=== PATIENT | male | born 1955 | race Caucasian/White ===

== ENCOUNTER 2019-04-15 11:01 | Emergency (ER) | payer OTHER, SELFPAY ==
[2019-04-15 11:01] VITALS: BP 173/137; PULSE 91; RESP 18; TEMP 36.6; O2SAT 100; BMI 24.3
--- NOTE | 2019-04-15 11:15 | CT_ITS ---
STUDY: CT ABDOMEN AND PELVIS WITHOUT CONTRAST REASON FOR EXAM: Male, 63 years old. Right flank pain. History of kidney stones. RADIATION DOSAGE (If Supplied By Facility): CTDIvol = ( 13.62 ) mGy, DLP = ( 685.32 ) mGycm TECHNIQUE: Transaxial images were obtained from the dome of the diaphragm to the symphysis pubis without oral contrast, and without intravenous contrast. Sagittal and coronal images were reconstructed. Individualized dose optimization techniques were used for this CT. COMPARISON: None. FINDINGS: Minimal degree of increased markings at the lung bases suggestive of linear atelectasis. Bronchiectasis in the posterior medial segment of the right lower lobe. There is a 6.8 mm noncalcified nodule in the lateral aspect of the right lower lobe. A similar appearing nodule measuring 5.4 mm is also seen along the lateral pleural aspect of the right lower lobe. The visualized portions of the heart are within normal limits. Normal liver. Normal gallbladder and extrahepatic biliary system. Normal spleen. Normal pancreas. Normal bilateral adrenal glands. Normal right kidney. There is a 5 mm calculus in the inferior pole calyx of the left kidney. There is a small hiatal hernia. Normal small intestine. Findings suggestive of a colitis involving the distal portion of the ascending colon as well as the transverse colon. There are multiple colonic diverticula consistent with diverticulosis. The appendix is visualized and appears normal. There is scattered atherosclerotic calcification of the abdominal aorta, without a demonstrated aneurysm. Normal inferior vena cava. Normal retroperitoneum. Normal urinary bladder. There is enlargement of the prostate gland. Prostatic calcification. Benign appearing bilateral inguinal lymph nodes. There are diffuse degenerative changes of the visualized lumbar spine. Levoscoliosis. CT/Abdomen/Pelvis without Cont IMPRESSION: Increased markings at the lung bases suggestive of scarring more prominent on the right side. Subcentimeters noncalcified nodules in the right lung base. Findings suggestive of colitis of the right hemicolon as described. Nonobstructive 5 mm calculus in the lower pole calyx of the left kidney. Prostatic hypertrophy and central calcification. Electronically Signed: Andrez Reyes, at 12:38 EDT , Service support ,
[2019-04-15 11:23] LABS: Absolute Lymphocyte Count 0.93 X10^3/uL (0.83-4.51); Basophil# 0.02 X10^3/uL; Basophil% 0.2 % (0-1); Eosinophil# 0.04 X10^3/uL; Eosinophils% 0.4 % (0-5); Hematocrit 45.9 % (40-54); Hemoglobin 16.4 g/dL (13.0-16.5); Lymphocyte # 0.93 X10^3/ul (4.0); Mean Corp Hgb Conc 35.7 g/dL (32-36); Mean Corpuscular Hgb 31.9 pg (27.0-32.0); Mean Corpuscular Volume 89.3 fL (80-94); Mean Platelet Vol. 9.9 fl (6.2-12.0); Monocyte# 0.29 X10^3/uL; Monocyte% 2.8 % (0-10); NRBC Flagged by Analyzer 0 % (0-5); Neutrophil # 8.97 X10^3/uL (2.7-7.7); Neutrophil % 86.9 % (47-70); Platelet Count 269 K/mm3 (150-450); RBC Distribution Width CV 12.2 % (11.6-14.6); RBC Distribution Width SD 40.2 fl (35.1-43.9); Red Blood Count 5.14 M/mm3 (4.6-6.2); White Blood Count 10.3 K/mm3 (4.4-11.0)
[2019-04-15] MEDS: 0.9% Normal Saline 1,000 ML 250 ML IV (11:25)
[2019-04-15] MEDS: Morphine 4 MG/ML Syringe IV (11:26)
[2019-04-15] MEDS: Ondansetron 4 MG/2 ML Vial IV (11:26)
[2019-04-15] MEDS: Ketorolac 30 MG/ML Syringe IV (11:27)
[2019-04-15 11:38] LABS: Anion Gap 8 (5-15); BUN 14 mg/dL (7-18); BUN/Creat Ratio 13.6 RATIO (10-20); Calcium,Total 9.3 mg/dL (8.5-10.1); Chloride 109 mmol/L (98-107); Creatinine, Serum 1.03 mg/dL (0.70-1.30); EST Glomerular Filtration Rate 78 mL/min (>60); Est Glom Filt Rate - Afr Amer 94 mL/min (>60); Estimated Creatinine Clearance 90.01 ml/min; Glucose 131 mg/dL (74-106); Potassium 3.7 mmol/L (3.5-5.1); Sodium Level 140 mmol/L (136-145)
[2019-04-15 13:00] LABS: Mucous, Urine 0 SEEN /hpf (<or=2+)
[2019-04-15 13:12] LABS: Color, Urine Yellow (Yellow); Glucose, Dipstick 50 mg/dl (Normal); Ketone-Dipstick 50 mg/dl (Negative); Leukocyte Esterase-Dipstick Negative /ul (Negative); Nitrite-Dipstick Negative (Negative); Occult Blood-Urine Negative /ul (Negative); Protein-Dipstick 15 mg/dl (Negative); Specific Gravity, Urine 1.015 (1.002-1.030); Urine Bilirubin Dipstick Negative (Negative); Urine Clarity Cloudy (Clear); Urine Urobilinogen Normal (Normal)
[2019-04-15 13:19] LABS: Amorphous Sediment 2+; Bacteria RARE /hpf (None Seen); Red Blood Cells-Urine 0-5 SEEN /hpf (0-5); Squamous Epithelial Cells - UA 0-5 SEEN /hpf (0-5); White Blood Cells 0-5 SEEN /hpf (0-5)
--- NOTE | 2019-04-15 13:35 | ED.DCSUM_ITS ---
- ER Visit Summary Date of Service: 04/15/19 Chief Complaint: Abdominal pain History of Present Illness: The patient is a 63 M who states that yesterday began to have some right lower quadrant abdominal pain. He states that it waxes and wane. It radiates to the right flank. He denies any blood in the urine. He states he does have a history of a kidney stone. No blood in stool. He is never had a colonoscopy. No history of colitis or inflammatory bowel disease. No fevers. Physical Examination: Afebrile vital signs stable Gen: Well-nourished well-developed patient appears in pain. Head: Normocephalic atraumatic Eyes: Perrl EOMI ENT: TMs clear no rhinorrhea moist mucous membranes Neck: Supple no lymphadenopathy no JVD nontender CVS: Regular rate rhythm no murmurs normal S1-S2 Respiratory: No distress clear to auscultation bilaterally chest nontender Abdomen: Soft nontender nondistended normal bowel sounds no masses Back: Nontender Extremity: Nontender no edema Skin: Normal color no rash Neuro: alert orientated ?3 CN II-XII intact normal strength sensation Psych: Normal affect normal mood Test Results: White count is normal. Urinalysis negative. Creatinine normal. CT and pelvis demonstrated large amount of stool in the right lower: As well as some colitis changes extending up to the transverse colon. He does have diverticuli present. Emergency Department Course and Treatment: Patient received pain and nausea medication as well as IV fluids. He feels improved. We will treat with Cipro Flagyl and some [place]. I also advised to take some magnesium citrate to get the stool moving from the right side. He was advised he needs to have a colonoscopy. Return if worsening concerns. Impression: 1. Acute colitis This note was generated with [employer] dictation software. It may contain incorrect words, spelling, and punctuation that were not noted in review of the chart prior to signing ED Disposition - Plan for ED Patient: Disposition: Home or Assisted Living Instructions: Diverticulitis Prescriptions: Ciprofloxacin [Cipro] 500 mg PO BID #14 tab Prescription Printed metroNIDAZOLE [Flagyl] 500 mg PO Q8H #21 tab Prescription Printed Hydrocodone Bitart/Apap 5-325 [[place] 5MG-325MG] 1 tab PO Q6H PRN PRN 3 Days #12 tab PRN Reason: Pain Prescription Printed Referrals: Chino Faulkner MD [[facility]] - 1 Week Additional Instructions: I would recommend that you take a bottle of magnesium citrate and use apple juice or prune juice to help stimulate the bowels. You will need to have a colonoscopy when you are asymptomatic Return if worsening or concerns. Monitor for fever.
[2019-04-15 14:07] VITALS: BP 121/72; PULSE 71; O2SAT 94
== END 2019-04-15 14:08 | disposition home or self-care (01) ==
PROVIDERS: Emergency Provider Emergency Medicine; Family Provider Specialist; PCP Specialist
DX: K52.9 Noninfective gastroenteritis and colitis, unspecified (principal); N20.0 Calculus of kidney; N40.0 Benign prostatic hyperplasia without lower urinary tract symptoms; Z87.442 Personal history of urinary calculi
CPT/HCPCS: 74176; 80048; 81001; 85025; 96361; 96374; 96375; 99283; J7030; A4216; J2405

== ENCOUNTER 2019-04-17 12:37 | Inpatient (IN) | payer OTHER, SELFPAY ==
[2019-04-17 12:38] VITALS: BP 146/103; PULSE 71; RESP 18; TEMP 36.8; O2SAT 100; BMI 23.8
--- NOTE | 2019-04-17 13:20 | CT_ITS ---
STUDY: CT ABDOMEN AND PELVIS WITHOUT CONTRAST REASON FOR EXAM: Male, 63 years old. Right flank pain. History of recent colitis. RADIATION DOSAGE (If Supplied By Facility): CTDIvol = ( 13.07 ) mGy, DLP = ( 699.69 ) mGycm TECHNIQUE: Transaxial images were obtained from the dome of the diaphragm to the symphysis pubis without oral contrast, and without intravenous contrast. Sagittal and coronal images were reconstructed. Individualized dose optimization techniques were used for this CT. COMPARISON: Comparison is made with prior examination April 15, 2019. FINDINGS: Stable mild degree of increased markings at the lung bases suggestive of scarring. Stable 6.8 mm noncalcified nodule in the lateral aspect of the right lower lobe. Stable 5.4 mm nodule in the posterior aspect of the right lower lobe abutting the right hemidiaphragm. The visualized portions of the heart are within normal limits. Normal liver. Normal gallbladder and extrahepatic biliary system. Normal spleen. Normal pancreas. Normal bilateral adrenal glands. Normal right kidney. Stable 5 mm calculus in the inferior pole calyx of the left kidney. Normal visualized stomach. Normal small intestine. There are scattered colonic diverticula consistent with diverticulosis. The previously seen thickening of the distal portion of the ascending colon as well as the transverse colon is less evident at this time. The appendix is visualized and appears normal. Normal abdominal aorta. Normal inferior vena cava. Normal retroperitoneum. Normal urinary bladder. There is enlargement of the prostate gland. Central prostatic calcifications. There is indentation of the bladder base. Normal abdominal wall. There are diffuse degenerative changes of the visualized lumbar spine. Levoscoliosis. CT/Abdomen/Pelvis without Cont IMPRESSION: Essentially stable examination except for less thickening of the distal descending colon and proximal transverse colon. Electronically Signed: Andrez Reyes, at 14:37 EDT , Service support ,
[2019-04-17 13:22] LABS: Anion Gap 9 (5-15); BUN 13 mg/dL (7-18); BUN/Creat Ratio 13.1 RATIO (10-20); Calcium,Total 9.4 mg/dL (8.5-10.1); Chloride 105 mmol/L (98-107); Creatinine, Serum 0.99 mg/dL (0.70-1.30); EST Glomerular Filtration Rate 81 mL/min (>60); Est Glom Filt Rate - Afr Amer 99 mL/min (>60); Estimated Creatinine Clearance 93.65 ml/min; Glucose 118 mg/dL (74-106); Potassium 3.4 mmol/L (3.5-5.1); Sodium Level 137 mmol/L (136-145)
[2019-04-17 13:24] LABS: Absolute Lymphocyte Count 0.79 X10^3/uL (0.83-4.51); Absolute Neutrophil Count 7.8 X10^3/uL (2.0-7.7); Basophil# 0.03 X10^3/uL; Basophil% 0.3 % (0-1); Hematocrit 47.5 % (40-54); Hemoglobin 17.1 g/dL (13.0-16.5); Lymphocyte # 0.79 X10^3/ul (4.0); Lymphocyte % 8.7 % (19-41); Mean Corpuscular Hgb 31.3 pg (27.0-32.0); Monocyte# 0.39 X10^3/uL; Monocyte% 4.3 % (0-10); NRBC Flagged by Analyzer 0 % (0-5); Neutrophil # 7.77 X10^3/uL (2.7-7.7); Neutrophil % 86.1 % (47-70); Platelet Count 283 K/mm3 (150-450); RBC Distribution Width CV 11.9 % (11.6-14.6); RBC Distribution Width SD 38.2 fl (35.1-43.9); Red Blood Count 5.46 M/mm3 (4.6-6.2)
[2019-04-17 13:40] LABS: AST(SGOT) 17 U/L (15-37); Alanine Aminotransfer ALT/SGPT 23 U/L (16-61); Albumin, Serum 4.7 g/dL (3.2-5.0); Alkaline Phosphatase 93 U/L (45-117); Bilirubin, Direct 0.39 mg/dL (0.00-0.30); Globulin 4.5 g/dL (2.2-4.2); Lipase 76 U/L (73-393); Protein, Total 9.2 g/dL (6.4-8.2)
[2019-04-17] MEDS: 0.9% Normal Saline 1,000 ML 1000 ML IV (13:52)
[2019-04-17] MEDS: Morphine 4 MG/ML Syringe IV ×2 (13:52→15:16)
[2019-04-17] MEDS: Ondansetron 4 MG/2 ML Vial IV (13:53)
--- NOTE | 2019-04-17 14:16 | ED.DCSUM_ITS ---
History of Present Illness Chief Complaint: Abd Pain Narrative: 63-year-old male was recently diagnosed with diverticulitis and started on oral antibiotics. He has been on them for 3 days now. The pain became fairly suddenly worse today, and the right lower quadrant and he is vomiting. He cannot keep the medication down. He denies fever or chills. Denies urinary symptoms or any radiation of the pain into his back. He has no other complaints. Current severity is moderate. Past Medical History - Allergies and Home Meds Allergies/Adverse Reactions: Allergies No Known Allergies Allergy (Verified 04/17/19 12:39) Primary Care Physician: Chino Faulkner MD [Primary Care Provider] - Smoking Status: Never smoker Review of Systems General: Denies: Chills, Fever, Sweats Eyes: Denies: Visual changes - bilaterally, Diplopia ENT: Denies: Rhinorrhea, Sore throat Cardiovascular: Denies: Chest pain, Palpitations Respiratory: Denies: Dyspnea, Cough, Dyspnea on exertion Gastrointestinal: Reports: Abdominal pain, Nausea, Vomiting. Denies: Diarrhea, Melena, Hematochezia Genitourinary: Denies: Dysuria, Hematuria, Frequency Musculoskeletal: Denies: Back pain, Extremity Pain Skin: Denies: Rash, Wounds Neurological: Denies: Headache, Weakness, Numbness Physical Exam Vital Signs/Narrative: Vital Signs Temp Pulse Resp BP Pulse Ox 04/17/19 12:38 98.2 F 71 18 146/103 H 100 General: Well nourished, Well developed, Acute Distress Head: Normocephalic, Atraumatic Eyes: Perrl, EOMI ENT: No rhinorrhea, Dry mucous membranes Neck: Supple, Nontender Cardiovascular: Regular rate, Regular rhythm, No murmurs Respiratory: No distress, CTA bilaterally, Chest nontender Abdomen: Nontender, Nondistended, Normal bowel sounds, Tender Back: Nontender, Normal Inspection Extremities: Nontender, No edema Skin: Normal color, No rash Neurological: Alert, Oriented x3, Cranial nerves II-XII grossly intact, Normal Strength, Normal Sensation Psychological: Normal affect, Normal Mood Diagnostic/Tx/Re-eval - Medical Decision Making CT scan does not appear significantly changed. Labs are fairly unremarkable however he is vomiting and unable to keep his medications down. He vomited up multiple doses at home and is still nauseated here, unable to tolerate p.o. I do therefore feel that he meets criteria for IV antibiotic treatment. I discussed the case with the hospitalist who recommended observation admission. ED Disposition - Plan for ED Patient: Disposition: Acute Care Hospital [facility] Diagnosis: Diverticulitis of intestine without perforation or abscess, Failure of outpatient treatment Referrals: Chino Faulkner MD [Primary Care Provider] -
[2019-04-17 14:51] LABS: Mucous, Urine 0 SEEN /hpf (<or=2+); Squamous Epithelial Cells - UA 0 SEEN /hpf (0-5)
[2019-04-17 14:54] LABS: Color, Urine Yellow (Yellow); Glucose, Dipstick 100 mg/dl (Normal); Leukocyte Esterase-Dipstick Negative /ul (Negative); Nitrite-Dipstick Negative (Negative); Occult Blood-Urine 10 /ul (Negative); Protein-Dipstick 30 mg/dl (Negative); Specific Gravity, Urine 1.015 (1.002-1.030); Urine Bilirubin Dipstick Negative (Negative); Urine Clarity Clear (Clear); Urine Urobilinogen Normal (Normal)
[2019-04-17 14:55] VITALS: BMI 23.9
[2019-04-17 14:57] LABS: Ketone-Dipstick 150 mg/dl (Negative)
--- NOTE | 2019-04-17 15:04 | NURSING ---
MED SURG OBS DIVERTICULITIS, FAILED OP THERAPY [facility]
[2019-04-17 15:05] LABS: Amorphous Sediment 1+; Bacteria 1+ /hpf (None Seen); Red Blood Cells-Urine 0-5 SEEN /hpf (0-5); White Blood Cells 0-5 SEEN /hpf (0-5)
--- NOTE | 2019-04-17 15:12 | PCM.HP.STD ---
Problem List (1) Acute colitis Status: Acute (2) Failure of outpatient treatment Status: Acute History of Present Illness Date of Admission: 04/17/19 Chief Complaint: Abdominal pain. The patient is a 63 year old M with no significant past medical history presented to the emergency room because of abdominal pain. His symptoms started this past Monday with right lower quadrant abdominal pain, was seen in the emergency department on Monday, diagnosed with acute colitis and he was discharged on ciprofloxacin and Flagyl. He returned back to the to the emergency department because of persistent abdominal pain, right lower quadrant pain, intermittent, radiates to the right flank, 9 out of 10 in severity, associated with nausea and vomiting and without aggravating or relieving factors. He mentioned that he could not keep any medications down to his stomach since Monday because of persistent nausea and vomiting. He denies fever or chills. He reported diarrhea but he has been taking prune juice and he denied blood in the stool. In the emergency department, initial blood pressure was elevated but improved, other vital signs are stable, afebrile. Routine blood work was remarkable for potassium of 2.4, otherwise normal. LFT revealed total bili was 1.8, direct bilirubin 0.39, liver transaminases and alkaline phosphatase are normal. Lipase was normal. CT scan abdomen and pelvis without contrast done today and revealed less thickening of the distal descending colon and proximal transverse colon compared to the CT scan abdomen that was done on April 15, 2019. Patient is being admitted for acute colitis of the distal ascending and proximal transverse colon with failure of outpatient treatment. Past Medical History Allergies No Known Allergies Allergy (Verified 04/17/19 12:39) Home Medications: Ambulatory Orders Medication Instructions Recorded Ciprofloxacin [Cipro] 500 mg PO BID #14 tab 04/15/19 Hydrocodone Bitart/Apap 5-325 1 tab PO Q6H PRN PRN 3 Days #12 tab 04/15/19 [[place] 5MG-325MG] metroNIDAZOLE [Flagyl] 500 mg PO Q8H #21 tab 04/15/19 Surgical History: herniorrhaphy Psychiatric History: No pertinent psych hx Lives: Spouse/ Significant Other Smoking Status: Never smoker Tobacco Use: Non-smoker Alcohol: None Drugs: None - *Family History Maternal History Items: No pertinent history Paternal History Items: No pertinent history Review of Systems Constitutional: Reports: Anorexia. Denies: Chills, Fever, Weakness Eyes: Denies: Blurred vision, Double vision, Drainage, Redness HEENT: Denies: Difficulty Hearing, Ear Pain, Eye Pain, Nasal Congestion, Sore Throat Cardiovascular: Denies: Chest Pain, Chest Pressure, Chest Tightness, Heaviness, Light Headedness, Palpitations, Syncope Respiratory: Denies: Cough, Pleuritic Pain, Shortness of Breath, Sputum production, Wheezing Gastrointestinal: Reports: Abdominal Pain, Diarrhea, Nausea, Vomiting. Denies: Constipation, Hematochezia, Melena Genitourinary: Denies: Dysuria, Frequency, Hematuria Musculoskeletal: Denies: Arm Pain, Back Pain, Foot Pain Skin: Denies: Dryness, Rash Neurological: Denies: Balance problems, Double vision, Change in Speech, Slurred speech, Confusion, Headaches, Incoordination, Numbness Psychiatric: Denies: Anxiety, Depression Endocrine: Denies: Change in Body Habitus, Polydipsia, Polyuria VTE Information - Inpt Only VTE Present on Admission: No VTE Mechan Device Prophylaxis: None VTE Pharm Prophylaxis ordered?: No Patient Problems: Active and Suspected Problems Acute colitis (Acute) Failure of outpatient treatment (Acute) - Physical Exam General: Alert, Oriented x3, Cooperative, No apparent distress HEENT: Atraumatic, PERRLA, EOMI, Normocephalic Oral: Moist Mucosa, No Gingival or Mucosal Lesions/ Ulcerations Neck: Supple, No JVD, Negative Carotid Bruits, Trachea Midline, Thyroid Normal Size and Texture Lungs: Clear to auscultation, Normal air movement, No rhonchi, No wheeze, No rales Cardiovascular: Regular rate, Regular Rhythm, Normal S1, Normal S2, No murmurs Abdomen: Bowel Sounds Present, Soft, Non-Distended, No Hepato-splenomegaly, Tender - Minimal right lower quadrant tenderness. No guarding or rigidity. Extremities: No clubbing, No cyanosis, No edema Skin: No rashes, No breakdown Lymphatic: No Cervical, Supraclavicular, or Inguinal Adenopathy Neurological: Cranial nerves II-XII grossly intact, Motor Exam 5/5 strength throughout Psych/Mental Status: Normal Affect, Appropriate, Alert and oriented to time, place, person, mood and affect Vital Signs Temp Pulse Resp BP Pulse Ox 98.2 F 71 18 146/103 H 100 04/17/19 12:38 04/17/19 12:38 04/17/19 12:38 04/17/19 12:38 04/17/19 12:38 Oxygen Delivery Method Room Air Weight: 190 lb 14.725 oz Body Mass Index (BMI) 23.8 Laboratory Tests Past 24 Hrs 04/17/19 04/17/19 04/17/19 12:45 12:45 12:45 WBC 9.0 RBC 5.46 Hgb 17.1 H Hct 47.5 MCV 87.0 MCH 31.3 MCHC 36.0 RDW Std Deviation 38.2 RDW Coeff of [place] 11.9 Plt Count 283 MPV 10.0 Immature Gran % (Auto) 0.600 Neut % (Auto) 86.1 H Lymph % (Auto) 8.7 L [place] % (Auto) 4.3 Eos % (Auto) 0.0 Baso % (Auto) 0.3 Absolute Neuts (auto) 7.8 H Absolute Lymphs (auto) 0.79 L Nucleated RBC % 0 Sodium 137 Potassium 3.4 L Chloride 105 Carbon Dioxide 23.0 Anion Gap 9 BUN 13 Creatinine 0.99 Estim Creat Clear Calc 93.65 Est GFR (MDRD) Af Amer 99 Est GFR (MDRD) Non-Af 81 BUN/Creatinine Ratio 13.1 Glucose 118 H Calcium 9.4 Total Bilirubin 1.80 H Direct Bilirubin 0.39 H AST 17 ALT 23 Alkaline Phosphatase 93 Total Protein 9.2 H Albumin 4.7 Globulin 4.5 H Lipase 76 Urine Color Urine Clarity Urine pH Ur Specific [place] Urine Protein Urine Glucose (UA) Urine Ketones Urine Occult Blood Urine Nitrite Urine Bilirubin Urine Urobilinogen Ur Leukocyte Esterase Urine RBC Urine WBC Ur Squamous Epith Cells Amorphous Sediment Urine Bacteria Urine Mucus 04/17/19 14:43 WBC RBC Hgb Hct MCV MCH MCHC RDW Std Deviation RDW Coeff of [place]aret Plt Count MPV Immature Gran % (Auto) Neut % (Auto) Lymph % (Auto) [place] % (Auto) Eos % (Auto) Baso % (Auto) Absolute Neuts (auto) Absolute Lymphs (auto) Nucleated RBC % Sodium Potassium Chloride Carbon Dioxide Anion Gap BUN Creatinine Estim Creat Clear Calc Est GFR (MDRD) Af Amer Est GFR (MDRD) Non-Af BUN/Creatinine Ratio Glucose Calcium Total Bilirubin Direct Bilirubin AST ALT Alkaline Phosphatase Total Protein Albumin Globulin Lipase Urine Color Yellow Urine Clarity Clear Urine pH 7.0 Ur Specific [place] 1.015 Urine Protein 30 H Urine Glucose (UA) 100 H Urine Ketones 150 H Urine Occult Blood 10 H Urine Nitrite Negative Urine Bilirubin Negative Urine Urobilinogen Normal Ur Leukocyte Esterase Negative Urine RBC 0-5 SEEN Urine WBC 0-5 SEEN Ur Squamous Epith Cells 0 SEEN Amorphous Sediment 1+ Urine Bacteria 1+ Urine Mucus 0 SEEN Clinical Impression(s) from Imaging Studies Abdomen/Pelvis CT 04/17/19 13:20 IMPRESSION: Essentially stable examination except for less thickening of the distal descending colon and proximal transverse colon. Electronically Signed: Andrez Reyes, at 14:37 EDT , Service support , Assessment/Plan All Active Problems Acute colitis (Acute) Failure of outpatient treatment (Acute) This is a 63 years old male patient presented to the emergency room because of worsening right lower quadrant abdominal pain with nausea and vomiting, was diagnosed with acute colitis of the distal ascending and proximal transverse colon 2 days ago and he has not been able to keep any medications down to his stomach and is being admitted for acute colitis of the distal ascending and proximal transverse colon with failure of outpatient treatment. #1 acute colitis of the distal ascending/proximal transverse colon: Without evidence of sepsis or severe sepsis. CT scan abdomen and pelvis done today and reviewed as above. Vital signs are stable, afebrile. Plan: Admit to MedSur floor, keep on clear liquids, IV fluids, IV morphine PRN for pain, IV antiemetics, IV Flagyl and ciprofloxacin, repeat CBC and BMP tomorrow morning, advance diet as tolerated. #2 hypokalemia: Likely because of diarrhea. Plan to replace potassium with IV potassium chloride, repeat BMP tomorrow morning. #3 elevated bilirubin: Both direct and indirect. Unclear etiology. Liver transaminases and alkaline phosphatase are normal. Patient denied any right upper quadrant abdominal pain. CT scan abdomen revealed normal liver, normal gallbladder and normal extrahepatic bladder system. Plan as above, repeat LFT tomorrow morning. #4 DVT prophylaxis: Low risk patient, no prophylaxis indicated. Ambulate. This note was generated with [employer] dictation software. It may contain incorrect words, spelling, and punctuation that were not noted in checking the note before signing. Code Visit Inpatient E&M: 99524 Init Hosp L2
[2019-04-17] MEDS: Ciprofloxacin 400 MG/200 ML BAG 200 MG IV ×2 (15:18→22:27)
[2019-04-17 15:22] VITALS: BP 165/89; PULSE 64; O2SAT 97
[2019-04-17 15:39] VITALS: BP 123/71; PULSE 67; RESP 12; TEMP 37.4; O2SAT 99; BMI 23.8
[2019-04-17] MEDS: metroNIDAZOLE 500 MG/100 ML BAG 100 MG IV ×2 (16:34→21:21)
[2019-04-17] MEDS: 0.9% Normal Saline 1,000 ML 100 ML IV (16:41)
--- NOTE | 2019-04-17 17:05 | NURSING ---
Kcl ordered... not to the floor yet. Pharmacy called and notified.
[2019-04-17] MEDS: Potassium Chloride 10mEq/100mL 10 MEQ/100 ML IV.SOLN. 100 MEQ IV BOLUS ×2 (17:16→18:21)
[2019-04-17 17:25] VITALS: O2SAT 99
[2019-04-17 19:48] VITALS: BP 120/76; PULSE 58; RESP 16; TEMP 36.6; O2SAT 95
[2019-04-17] MEDS: Ketorolac 15 MG/ML Vial IV (21:27)
[2019-04-18 02:09] VITALS: BP 107/70; PULSE 59; RESP 16; TEMP 36.5; O2SAT 97
[2019-04-18] MEDS: 0.9% Normal Saline 1,000 ML 100 ML IV ×2 (03:05→13:42)
[2019-04-18] MEDS: metroNIDAZOLE 500 MG/100 ML BAG 100 MG IV ×2 (06:00→13:47)
[2019-04-18] MEDS: Ketorolac 15 MG/ML Vial IV ×2 (06:05→13:43)
[2019-04-18 06:26] LABS: Absolute Lymphocyte Count 1.16 X10^3/uL (0.83-4.51); Absolute Neutrophil Count 5.4 X10^3/uL (2.0-7.7); Basophil# 0.03 X10^3/uL; Basophil% 0.4 % (0-1); Eosinophils% 1.3 % (0-5); Hematocrit 36.3 % (40-54); Hemoglobin 12.7 g/dL (13.0-16.5); Lymphocyte # 1.16 X10^3/ul (4.0); Lymphocyte % 15.7 % (19-41); Mean Corpuscular Hgb 30.9 pg (27.0-32.0); Mean Corpuscular Volume 88.3 fL (80-94); Monocyte# 0.74 X10^3/uL; NRBC Flagged by Analyzer 0 % (0-5); Neutrophil # 5.35 X10^3/uL (2.7-7.7); Neutrophil % 72.2 % (47-70); Platelet Count 200 K/mm3 (150-450); RBC Distribution Width CV 12.4 % (11.6-14.6); RBC Distribution Width SD 39.8 fl (35.1-43.9); Red Blood Count 4.11 M/mm3 (4.6-6.2); White Blood Count 7.4 K/mm3 (4.4-11.0)
[2019-04-18 06:45] LABS: AST(SGOT) 22 U/L (15-37); Alanine Aminotransfer ALT/SGPT 31 U/L (16-61); Albumin, Serum 3.1 g/dL (3.2-5.0); Alkaline Phosphatase 60 U/L (45-117); Anion Gap 8 (5-15); BUN 14 mg/dL (7-18); BUN/Creat Ratio 16.8 RATIO (10-20); Chloride 111 mmol/L (98-107); Creatinine, Serum 0.83 mg/dL (0.70-1.30); EST Glomerular Filtration Rate 100 mL/min (>60); Est Glom Filt Rate - Afr Amer 121 mL/min (>60); Estimated Creatinine Clearance 111.71 ml/min; Glucose 84 mg/dL (74-106); Potassium 3.5 mmol/L (3.5-5.1); Protein, Total 6.1 g/dL (6.4-8.2); Sodium Level 143 mmol/L (136-145)
[2019-04-18] MEDS: 0.9% NaCl Peripheral Flush Adult/Peds IV ×2 (08:03→13:42)
[2019-04-18 08:06] VITALS: BP 127/71; PULSE 60; RESP 16; TEMP 37; O2SAT 94
[2019-04-18 08:11] VITALS: O2SAT 95
[2019-04-18 09:35] VITALS: PULSE 60
[2019-04-18] MEDS: Ciprofloxacin 400 MG/200 ML BAG 200 MG IV (09:37)
--- NOTE | 2019-04-18 12:40 | CASEMGMT ---
RN DEBBI Face to Face with patient for initial transition planning/care coordination assessment. RN CM introduced self and role at [facility]. Patient lying in bed, alert and oriented. Patient willing to participate in assessment and is able to answer all questions appropriately. Care providers, pharmacy, and demographics verified. Patient wishes to discharge home, denies need for home health at this time. Patient states he has no further needs or concerns at this time. CM to follow for discharge planning needs that may arise. PCP: Chino Faulkner Specialists: None Preferred [facility]acy: [facility] Insurance: MMO Prescription Benefit: No Living Will/HPOA: none LNOK: Living Arrangements: Patient lives with in single story home with 2 steps to enter the home. Patient is independent at home. Transportation: self/ DME/HHC: Patient denies any DME or previous HHC. Disposition Plan: Patient to discharge home with family support and follow-up plans in place. Jocelyn THOMPSON, RN, CM
--- NOTE | 2019-04-18 13:35 | PCM.DC ---
- Discharge Diagnoses Current Active Problems: Current Active and Chronic Problems Diverticulitis of intestine without perforation or abscess (Acute) Acute colitis (Acute) Failure of outpatient treatment (Acute) You will use the following diet at home:: Other - Light diet, advance as tolerated Discharge Activity: Return to Normal Activity Call your doctor if you observe: Fever of 101 or Higher, Uncontrolled pain, - - Persistent diarrhea Additional Instructions: Recommend routine outpatient colonoscopy in 4 to 6 weeks which can be arranged by primary care provider. Allergies/Adverse Reactions: Allergies No Known Allergies Allergy (Verified 04/17/19 12:39) Medications to take at Discharge Ciprofloxacin [Cipro] 500 mg PO BID #14 tab 04/15/19 Hydrocodone Bitart/Apap 5-325 [[place] 5/325] 1 tab PO Q6H PRN PRN 3 Days #12 tab 04/15/19 metroNIDAZOLE [Flagyl] 500 mg PO Q8H #21 tab 04/15/19 Primary Care Physician: Chino Faulkner MD [Primary Care Provider] - Please follow up with your Primary Care Physician in: 1 Week Test Results: Test results from this visit will be discussed in further detail at your follow-up appointment, if applicable. Proposed Discharge Date: 04/18/19
--- NOTE | 2019-04-18 13:37 | PCM.DC.SUM ---
<Lesa Broussard - Last Filed: 04/18/19 14:04> Discharge Date and Diagnosis Date of Admission: 04/17/19 Date of Discharge: 04/18/19 - Primary Discharge Diagnosis Active and Suspected Problems 1. Acute colitis of the distal ascending and proximal transverse colon, failed outpatient treatment with antibiotics 2. Mild hypokalemia, resolved Hospital Course and Treatment Imaging Results: Diagnostic Data Abdomen/Pelvis CT 04/17/19 13:20 IMPRESSION: Essentially stable examination except for less thickening of the distal descending colon and proximal transverse colon. Electronically Signed: Andrez Reyes, at 14:37 EDT , Service support , Operations: None Procedures: None Summary of Care Provided: The patient is a 63 year old M admitted 04/17/2019 due to abdominal pain. 1. Acute colitis of the distal ascending and proximal transverse colon, failed outpatient treatment with oral antibiotics-CT of abdomen and pelvis on admission shows stable exam, less thickening of the distal descending colon and proximal transverse colon. Patient placed on IV Cipro and IV Flagyl on admission. He has had no further diarrhea or abdominal pain since admission. Denies nausea, vomiting. Discharged home on previously prescribed Cipro and Flagyl to complete entire course. Follow-up with primary care physician in 1 week. Recommend colonoscopy in 4 to 6 weeks, can be referred to GI or general surgery for this by primary care physician. 2. Mild hypokalemia, resolved-secondary to #1. Patient seen and examined prior to discharge. Physical assessment as noted below. Patient is stable for discharge with follow up recommendations as noted above. This patient was seen by [facility] under the supervision of Dr. Zamorano. - Physical Exam General: Alert, Oriented x3, Cooperative HEENT: Atraumatic, PERRLA, EOMI, Normocephalic Neck: Supple, No JVD, Negative Carotid Bruits Lungs: Clear to auscultation, Normal air movement Cardiovascular: Regular rate, Regular Rhythm, Normal S1, Normal S2, No murmurs Abdomen: Bowel Sounds Present, Soft, Non Tender, Non-Distended Extremities: No clubbing, No cyanosis, No edema, Capillary Refill Less than 3 Seconds Skin: No rashes, No breakdown Musculoskeletal: No Tenderness to Palpation of Joints or Extremities Neurological: Cranial nerves II-XII grossly intact, Neuro grossly intact Psych/Mental Status: Normal Affect, Appropriate Vital Signs Temp Pulse Resp BP Pulse Ox 98.6 F 60 16 127/71 H 95 04/18/19 08:06 04/18/19 09:35 04/18/19 08:06 04/18/19 08:06 04/18/19 08:11 Oxygen Flow Rate (L/min) 98 Oxygen Delivery Method Room Air Weight: 191 lb 3.205 oz Body Mass Index (BMI) 23.8 Intake and Output for Last 24 Hours 04/16/19 04/17/19 04/18/19 23:59 23:59 23:59 Intake Total 2593.33 / 2593.33 1261.67 / 1261.67 Balance 2593.33 / 2593.33 1261.67 / 1261.67 Laboratory Tests Past 24 Hrs 04/17/19 04/17/19 04/18/19 12:45 14:43 05:50 WBC 7.4 RBC 4.11 L Hgb 12.7 L Hct 36.3 L MCV 88.3 MCH 30.9 MCHC 35.0 RDW Std Deviation 39.8 RDW Coeff of Jaret 12.4 Plt Count 200 MPV 10.0 Immature Gran % (Auto) 0.400 Neut % (Auto) 72.2 H Lymph % (Auto) 15.[address] [place] % (Auto) 10.0 Eos % (Auto) 1.3 Baso % (Auto) 0.4 Absolute Neuts (auto) 5.4 Absolute Lymphs (auto) 1.16 Nucleated RBC % 0 Sodium Potassium Chloride Carbon Dioxide Anion Gap BUN Creatinine Estim Creat Clear Calc Est GFR (MDRD) Af Amer Est GFR (MDRD) Non-Af BUN/Creatinine Ratio Glucose Calcium Total Bilirubin 1.80 H Direct Bilirubin 0.39 H AST 17 ALT 23 Alkaline Phosphatase 93 Total Protein 9.2 H Albumin 4.7 Globulin 4.5 H Albumin/Globulin Ratio Lipase 76 Urine Color Yellow Urine Clarity Clear Urine pH 7.0 Ur Specific [place] 1.015 Urine Protein 30 H Urine Glucose (UA) 100 H Urine Ketones 150 H Urine Occult Blood 10 H Urine Nitrite Negative Urine Bilirubin Negative Urine Urobilinogen Normal Ur Leukocyte Esterase Negative Urine RBC 0-5 SEEN Urine WBC 0-5 SEEN Ur Squamous Epith Cells 0 SEEN Amorphous Sediment 1+ Urine Bacteria 1+ Urine Mucus 0 SEEN 04/18/19 05:50 WBC RBC Hgb Hct MCV MCH MCHC RDW Std Deviation RDW Coeff of Jaret Plt Count MPV Immature Gran % (Auto) Neut % (Auto) Lymph % (Auto) [place] % (Auto) Eos % (Auto) Baso % (Auto) Absolute Neuts (auto) Absolute Lymphs (auto) Nucleated RBC % Sodium 143 Potassium 3.5 Chloride 111 H Carbon Dioxide 24.0 Anion Gap 8 BUN 14 Creatinine 0.83 Estim Creat Clear Calc 111.71 Est GFR (MDRD) Af Amer 121 Est GFR (MDRD) Non-Af 100 BUN/Creatinine Ratio 16.8 Glucose 84 Calcium 8.0 L Total Bilirubin 1.30 H Direct Bilirubin AST 22 ALT 31 Alkaline Phosphatase 60 Total Protein 6.1 L Albumin 3.1 L Globulin 3.0 Albumin/Globulin Ratio 1.0 Lipase Urine Color Urine Clarity Urine pH Ur Specific [place] Urine Protein Urine Glucose (UA) Urine Ketones Urine Occult Blood Urine Nitrite Urine Bilirubin Urine Urobilinogen Ur Leukocyte Esterase Urine RBC Urine WBC Ur Squamous Epith Cells Amorphous Sediment Urine Bacteria Urine Mucus Discharge Diet: Light diet - advance as tolerated Discharge Activity: Return to Normal Activity Call your doctor if you observe: Fever of 101 or Higher, Uncontrolled pain, - - Persistent diarrhea Home Medications: Medications to take at Discharge Ciprofloxacin [Cipro] 500 mg PO BID #14 tab 04/15/19 Hydrocodone Bitart/Apap 5-325 [[place] 5/325] 1 tab PO Q6H PRN PRN 3 Days #12 tab 04/15/19 metroNIDAZOLE [Flagyl] 500 mg PO Q8H #21 tab 04/15/19 Primary Care Physician: Chino Faulkner MD [Primary Care Provider] - Please follow up with your Primary Care Physician in: 1 Week Disposition: Home Minutes spent on discharge:: 35 Patient Condition:: Stable Medical Necessity - Tobacco Use Smoking Status: Never smoker Tobacco Use: Non-smoker Meaningful Use Info Meaningful Use Diagnoses (Choose all that apply): None applicable <Reignaldo Zamorano - Last Filed: 04/18/19 14:53> Hospital Course and Treatment Summary of Care Provided: This patient was seen in conjunction with SALESPERSON MEATSLesa. I have independently interviewed and examined the patient and reviewed pertinent history, examination findings, laboratory and plan of management. I have reviewed the note and agree with the documented findings with the few additional points. In brief, The patient is a 63 year old M admitted for right lower quadrant abdominal pain with radiation to right flank along with nausea, vomiting with CT abdomen findings of thickening of the distal portion of ascending colon and right colon suggestive of colitis after he failed outpatient antibiotics Cipro and Flagyl. Repeat CT abdomen was done which showed less evidence of colonic thickening as compared to past. Patient abdominal pain is resolved. Denies lower urinary tract symptoms including dysuria. Labs reviewed. Mild hypokalemia, resolved. Labs are in acceptable range. Total bilirubin improved from 1.8-1.3. Patient was advised colonoscopy in 4 to 6-week. Patient never had colonoscopy and has not seen for some years. Advised to follow with PCP. Discharge medication reconciliation done. Discharge follow-up instructions completed. Discharge process discussed with the patient and all questions were answered to patient's satisfaction. Patient was admitted as inpatient but was discharged because of sooner recovery than expected. Patient wants to go home I have discussed my assessment with [facility]ESPERSON MEATSLesa and orders have been reviewed. [] Subjective: Seen and examined. The patient was admitted with abdominal pain mainly in right lower quadrant with radiation to right flank, she did with nausea and vomiting. He also had diarrhea about 4-5 times but denied any hematemesis, melena or hematochezia. Earlier, patient was sent home on Cipro and Flagyl on past Monday but his symptoms gotten worse therefore admitted The morning, his abdominal pain has resolved. No nausea, vomiting. - Physical Exam General: Alert, Oriented x3, Cooperative HEENT: Atraumatic, PERRLA, EOMI, Normocephalic Neck: Supple, No JVD, Negative Carotid Bruits Lungs: Clear to auscultation, Normal air movement, No rhonchi, No wheeze, No rales Cardiovascular: Regular rate, No murmurs Abdomen: Bowel Sounds Present, Soft, Non-Distended, No Hepato-splenomegaly, Tender - Very slight tenderness on right lower quadrant on deep palpation. Extremities: No edema, Capillary Refill Less than 3 Seconds Skin: No rashes, No breakdown Musculoskeletal: No Tenderness to Palpation of Joints or Extremities, Arthritic Changes Neurological: Cranial nerves II-XII grossly intact Psych/Mental Status: Normal Affect, Appropriate Vital Signs Temp Pulse Resp BP Pulse Ox 98.6 F 60 16 127/71 H 95 04/18/19 08:06 04/18/19 09:35 04/18/19 08:06 04/18/19 08:06 04/18/19 08:11 Oxygen Flow Rate (L/min) 98 Oxygen Delivery Method Room Air Weight: 191 lb 3.205 oz Body Mass Index (BMI) 23.8 Intake and Output for Last 24 Hours 04/16/19 04/17/19 04/18/19 23:59 23:59 23:59 Intake Total 2593.33 / 2593.33 1580.00 / 1580.00 Balance 2593.33 / 2593.33 1580.00 / 1580.00 Laboratory Tests Past 24 Hrs 04/17/19 04/18/19 04/18/19 14:43 05:50 05:50 WBC 7.4 RBC 4.11 L Hgb 12.7 L Hct 36.3 L MCV 88.3 MCH 30.9 MCHC 35.0 RDW Std Deviation 39.8 RDW Coeff of Jaret 12.4 Plt Count 200 MPV 10.0 Immature Gran % (Auto) 0.400 Neut % (Auto) 72.2 H Lymph % (Auto) 15.[address] % (Auto) 10.0 Eos % (Auto) 1.3 Baso % (Auto) 0.4 Absolute Neuts (auto) 5.4 Absolute Lymphs (auto) 1.16 Nucleated RBC % 0 Sodium 143 Potassium 3.5 Chloride 111 H Carbon Dioxide 24.0 Anion Gap 8 BUN 14 Creatinine 0.83 Estim Creat Clear Calc 111.71 Est GFR (MDRD) Af Amer 121 Est GFR (MDRD) Non-Af 100 BUN/Creatinine Ratio 16.8 Glucose 84 Calcium 8.0 L Total Bilirubin 1.30 H AST 22 ALT 31 Alkaline Phosphatase 60 Total Protein 6.1 L Albumin 3.1 L Globulin 3.0 Albumin/Globulin Ratio 1.0 Urine Color Yellow Urine Clarity Clear Urine pH 7.0 Ur Specific [place] 1.015 Urine Protein 30 H Urine Glucose (UA) 100 H Urine Ketones 150 H Urine Occult Blood 10 H Urine Nitrite Negative Urine Bilirubin Negative Urine Urobilinogen Normal Ur Leukocyte Esterase Negative Urine RBC 0-5 SEEN Urine WBC 0-5 SEEN Ur Squamous Epith Cells 0 SEEN Amorphous Sediment 1+ Urine Bacteria 1+ Urine Mucus 0 SEEN Code Visit Inpatient E&M: 95867 Disch Hosp
--- NOTE | 2019-04-18 15:32 | CHAPLAIN ---
Type of Pastoral Visit _x__ Initial Visit ___ Follow-up Visit ___ On-call Visit ___ General Patient Visit ___ Spiritual Assessment ___ Family Conference ___ Bereavement ___ Rapid Response ___ Code Blue ___ Other (describe below) Pastoral Care Referral From _x__ Patient ___ Family ___ Nurse ___ Physician ___ Counter Maker ___ Bag Bundler ___ Other (describe below) Sacrament/Intervention _x__ Active listening ___ Anointing ___ Presybeterian ___ Bereavement ___ Communion _x__ Kaitlin exploration ___ _x__ Life review _x__ Prayer ___ Reconciliation ___ Sacrament of Sick ___ Supportive presence ___ Wedding ___ Other (describe below) Pastoral Comments
[2019-04-18 16:10] VITALS: BP 129/72; PULSE 61; RESP 16; TEMP 37; O2SAT 96
== END 2019-04-18 16:29 | disposition home or self-care (01) | DRG 392 ==
LOC: ED 15:00 → MS3 15:17
PROVIDERS: Admitting Provider Hospitalist; Emergency Provider Emergency Medicine; Family Provider Specialist; PCP Family Medicine; Referring Provider Hospitalist; Visit Provider Internal Medicine
DX: K52.9 Noninfective gastroenteritis and colitis, unspecified (principal); E87.6 Hypokalemia
CPT/HCPCS: 36415; 74176; 80048; 80053; 80076; 81001; 83690; 85025; 99285; J7030; J7050; A4216; J0744; J2405

== ENCOUNTER 2019-04-19 14:51 | Observation (INO) | payer OTHER, SELFPAY ==
[2019-04-19] VITALS (7 sets, daily range): BP systolic 128–182; BP diastolic 69–95; PULSE 68–74; RESP 16–18; TEMP 36.7–37.2; O2SAT 98–100; BMI 23.7; BMI 24.0
--- NOTE | 2019-04-19 15:16 | ED.DCSUM_ITS ---
History of Present Illness Chief Complaint: Nausea/Vomiting Narrative: Patient presenting secondary to nausea vomiting and abdominal pain. On the the patient was diagnosed as having colitis of his distal ascending colon and transverse colon. He was started on Cipro and Flagyl and was discharged at that time. On the he came back into the emergency department due to nausea and vomiting and inability to tolerate p.o. or keep down his antibiotics. He was admitted to the hospital, was started on IV fluids and antibiotics, had improvement in 24 hours, and was discharged yesterday. This morning the patient had reemergence of nausea and vomiting, and increase of his right-sided abdominal pain. He does endorse that he has been having some loose stools again, and now he is unable to keep down liquids or his antibiotics once again. He denies any presence of fevers. Pain is moderate worse with palpation. Emesis is nonbloody nonbilious. Review of systems otherwise negative. Past Medical History - Allergies and Home Meds Allergies/Adverse Reactions: Allergies No Known Allergies Allergy (Verified 04/19/19 14:55) Primary Care Physician: Chino Faulkner MD [Primary Care Provider] - Past Medical History: None Surgical History: herniorrhaphy Smoking Status: Never smoker - Family History Maternal Family History: Reports: No pertinent history Paternal Family History: Reports: No pertinent history Review of Systems All systems negative except as indicated General: Denies: Fever Gastrointestinal: Reports: Abdominal pain, Nausea, Vomiting, Diarrhea Physical Exam Vital Signs/Narrative: Vital Signs Temp Pulse Resp BP Pulse Ox 04/19/19 14:52 98.0 F 68 16 176/95 H 100 Inital Vital Signs reviewed: Yes General: Well nourished, Well developed, No Acute Distress Head: Normocephalic, Atraumatic Eyes: Perrl, EOMI ENT: No rhinorrhea, Dry mucous membranes Neck: Supple, Nontender Cardiovascular: Regular rate, Regular rhythm, No murmurs Respiratory: No distress, CTA bilaterally, Chest nontender Abdomen: Soft, Nondistended, Normal bowel sounds, Tender - Right mid abdomen. Negative for: Guarding Back: Nontender, Normal Inspection Extremities: Nontender, No edema Skin: Normal color, No rash Neurological: Alert, Oriented x3, Cranial nerves II-XII grossly intact, Normal Strength, Normal Sensation Psychological: Normal affect, Normal Mood Diagnostic/Tx/Re-eval - Medical Decision Making Patient presented secondary to nausea vomiting and abdominal pain in setting of recent diagnosis of colitis. CBC and chemistry were indicative only of some mild hypokalemia. Patient was given 2 doses of Zofran and 2 L of lactated Ringer's, but still is having active vomiting despite this. Given the patient's need for continued antibiotic treatment and his inability to tolerate p.o. I believe he requires readmission. I will discuss this with the hospitalist. Disposition: Admit to Med Surg ED Disposition - Plan for ED Patient: Disposition: Acute Care Hospital [facility] Diagnosis: Acute colitis, Intractable vomiting with nausea
[2019-04-19] MEDS: Lactated Ringers 1,000 ML 999 ML IV ×2 (15:21→16:24)
[2019-04-19] MEDS: Ondansetron 4 MG/2 ML Vial IV ×3 (15:22→20:12)
[2019-04-19] MEDS: Morphine 4 MG/ML Syringe IV ×2 (15:23→21:42)
[2019-04-19 15:33] LABS: Absolute Lymphocyte Count 0.58 X10^3/uL (0.83-4.51); Absolute Neutrophil Count 5.8 X10^3/uL (2.0-7.7); Basophil# 0.02 X10^3/uL; Basophil% 0.3 % (0-1); Eosinophil# 0.02 X10^3/uL; Eosinophils% 0.3 % (0-5); Hematocrit 42.5 % (40-54); Hemoglobin 15.6 g/dL (13.0-16.5); Lymphocyte # 0.58 X10^3/ul (4.0); Lymphocyte % 8.3 % (19-41); Mean Corp Hgb Conc 36.7 g/dL (32-36); Mean Corpuscular Hgb 31.6 pg (27.0-32.0); Mean Platelet Vol. 9.6 fl (6.2-12.0); Monocyte# 0.52 X10^3/uL; Monocyte% 7.5 % (0-10); NRBC Flagged by Analyzer 0 % (0-5); Neutrophil # 5.79 X10^3/uL (2.7-7.7); Neutrophil % 83.2 % (47-70); POSITIVE DIFFERENTIAL YES; Platelet Count 246 K/mm3 (150-450); RBC Distribution Width CV 11.9 % (11.6-14.6); RBC Distribution Width SD 37.2 fl (35.1-43.9); Red Blood Count 4.94 M/mm3 (4.6-6.2)
[2019-04-19 15:40] LABS: Differential Indicated SCAN CRITERIA MET
[2019-04-19 15:47] LABS: ALB/GLOB Ratio 1.2 RATIO (0.9-2.4); AST(SGOT) 29 U/L (15-37); Alanine Aminotransfer ALT/SGPT 55 U/L (16-61); Alkaline Phosphatase 74 U/L (45-117); Anion Gap 13 (5-15); BUN 12 mg/dL (7-18); BUN/Creat Ratio 13.6 RATIO (10-20); Calcium,Total 8.5 mg/dL (8.5-10.1); Chloride 107 mmol/L (98-107); Creatinine, Serum 0.88 mg/dL (0.70-1.30); EST Glomerular Filtration Rate 93 mL/min (>60); Est Glom Filt Rate - Afr Amer 113 mL/min (>60); Estimated Creatinine Clearance 105.36 ml/min; Globulin 3.4 g/dL (2.2-4.2); Glucose 105 mg/dL (74-106); Potassium 3.3 mmol/L (3.5-5.1); Protein, Total 7.4 g/dL (6.4-8.2); Sodium Level 141 mmol/L (136-145)
[2019-04-19 16:02] LABS: Differential Comment SCANNED
--- NOTE | 2019-04-19 16:58 | HP.PCM_ITS ---
<Lesa Broussard - Last Filed: 04/19/19 17:17> Problem List (1) Acute colitis Status: Acute (2) Intractable vomiting with nausea Status: Acute (3) Failure of outpatient treatment Status: Acute History of Present Illness Date of Admission: 04/19/19 Chief Complaint: Right-sided abdominal pain, intractable nausea and vomiting, diarrhea. The patient is a 63 year old M who presents the emergency room due to right- sided abdominal pain, intractable nausea vomiting and diarrhea. Patient was discharged from the hospital yesterday, 04/18/2019 following treatment of acute colitis of the distal ascending and proximal transverse colon, he failed outpatient treatment with oral antibiotics. He improved quickly during admission and was tolerating diet and had no further abdominal pain or diarrhea. He reports he continued to feel well throughout the day and evening yesterday. Today around 11 AM he developed fairly sudden onset right lower quadrant abdomi nal pain with associated nausea, vomiting and minimal diarrhea. He reports he is not able to keep down liquids. He did take his oral antibiotics last night and this morning without emesis. He has never had a colonoscopy. He denies any past medical history. Past Medical History Allergies No Known Allergies Allergy (Verified 04/19/19 14:55) Home Medications: Ambulatory Orders Medication Instructions Recorded Ciprofloxacin [Cipro] 500 mg PO BID #14 tab 04/15/19 Hydrocodone Bitart/Apap 5-325 1 tab PO Q6H PRN PRN 3 Days #12 tab 04/15/19 [[place] 5/325] metroNIDAZOLE [Flagyl] 500 mg PO Q8H #21 tab 04/15/19 Surgical History: herniorrhaphy Psychiatric History: No pertinent psych hx Lives: Spouse/ Significant Other Smoking Status: Never smoker Alcohol: None Drugs: None - *Family History Maternal History Items: - - Denies known maternal medical history including cardiac histo ry. Paternal History Items: - - Denies known paternal medical history including cardiac history. Review of Systems Constitutional: Denies: Chills, Fever, Weight Change HEENT: Denies: Head Aches, Sinus Congestion, Sinus Drainage Cardiovascular: Denies: Chest Pain, Edema, Light Headedness, Palpitations, Syncope Respiratory: Denies: Cough, Shortness of breath at rest, Sputum production Gastrointestinal: Reports: Abdominal Pain - Right sided, Diarrhea, Nausea, Vomiting Genitourinary: Denies: Dysuria Musculoskeletal: Denies: Joint Pain, Joint Tenderness Skin: Denies: Rash, Wounds Neurological: Denies: Numbness, Tingling, Focal weakness Psychiatric: Denies: Anxiety, Depression, Homicidal Ideations, Suicidal Ideations Hematologic/ Lymphatic: Denies: Easy Bruising, Easy Bleeding VTE Information - Inpt Only VTE Present on Admission: No VTE Mechan Device Prophylaxis: None VTE Pharm Prophylaxis ordered?: No Reason prophylaxis not ordered:: Treatment Not Indicated Patient Problems: Active and Suspected Problems Intractable vomiting with nausea (Acute) Acute colitis (Acute) - Physical Exam General: Alert, Oriented x3, Cooperative, - - Appears uncomfortable, nauseated HEENT: Atraumatic, PERRLA, EOMI, Normocephalic Oral: Dry Mucosa Neck: Supple, No JVD, Negative Carotid Bruits Lungs: Clear to auscultation, Normal air movement Cardiovascular: Regular rate, Regular Rhythm, Normal S1, Normal S2, No murmurs Abdomen: Bowel Sounds Present, Soft, Non-Distended, Tender - Right lower quadrant Extremities: No clubbing, No cyanosis, No edema, Capillary Refill Less than 3 Seconds Skin: No rashes, No breakdown Musculoskeletal: No Tenderness to Palpation of Joints or Extremities Neurological: Cranial nerves II-XII grossly intact, Neuro grossly intact Psych/Mental Status: Normal Affect, Appropriate Vital Signs Temp Pulse Resp BP Pulse Ox 98.0 F 68 16 176/95 H 100 04/19/19 14:52 04/19/19 14:52 04/19/19 14:52 04/19/19 14:52 04/19/19 14:52 Oxygen Delivery Method Room Air Weight: 190 lb Body Mass Index (BMI) 23.7 Intake and Output for Last 24 Hours 04/17/19 04/18/19 04/19/19 23:59 23:59 23:59 Intake Total 1000 / 1000 Balance 1000 / 1000 Laboratory Tests Past 24 Hrs 04/19/19 04/19/19 15:20 15:20 WBC 7.0 RBC 4.94 Hgb 15.6 Hct 42.5 MCV 86.0 MCH 31.6 MCHC 36.7 H RDW Std Deviation 37.2 RDW Coeff of Jaret 11.9 Plt Count 246 MPV 9.6 Immature Gran % (Auto) 0.400 Neut % (Auto) 83.2 H Lymph % (Auto) 8.3 L [place] % (Auto) 7.5 Eos % (Auto) 0.3 Baso % (Auto) 0.3 Absolute Neuts (auto) 5.8 Absolute Lymphs (auto) 0.58 L Nucleated RBC % 0 Differential Comment SCANNED Sodium 141 Potassium 3.3 L Chloride 107 Carbon Dioxide 21.0 Anion Gap 13 BUN 12 Creatinine 0.88 Estim Creat Clear Calc 105.36 Est GFR (MDRD) Af Amer 113 Est GFR (MDRD) Non-Af 93 BUN/Creatinine Ratio 13.6 Glucose 105 Calcium 8.5 Total Bilirubin 1.70 H AST 29 ALT 55 Alkaline Phosphatase 74 Total Protein 7.4 Albumin 4.0 Globulin 3.4 Albumin/Globulin Ratio 1.2 Assessment/Plan All Active Problems Intractable vomiting with nausea (Acute) Acute colitis (Acute) Failure of outpatient treatment (Acute) 1. Acute colitis of the distal ascending and proximal transverse colon, failed outpatient treatment with oral antibiotics-recurrent admission for the same. CT of abdomen and pelvis 04/17/2019 showed stable exam, less thickening of the distal descending colon and proximal transverse colon. Patient previously admitted with quick improvement on IV fluids and IV Cipro and IV Flagyl. Again failed outpatient antibiotic therapy. PRN antiemetics. Consult placed to Dr. Billings, general surgery given recurrent admission. IV fluids, resume IV cipro and IV flagyl. 2. Mild hypokalemia-replaced per protocol. 3. Elevated bilirubin-unclear etiology. General surgery consult placed as noted above. LFTs normal. DVT prophylaxis-low risk, encourage ambulation. This patient was seen by [facility] Pool under the supervision of Dr. lA. <Pedro Luis Al - Last Filed: 04/19/19 17:33> History of Present Illness The patient is a 63 year old M [] Past Medical History Allergies No Known Allergies Allergy (Verified 04/19/19 14:55) - Physical Exam Vital Signs Temp Pulse Resp BP Pulse Ox 98.0 F 68 16 181/89 H 100 04/19/19 14:52 04/19/19 14:52 04/19/19 14:52 04/19/19 17:09 04/19/19 14:52 Oxygen Delivery Method Room Air Weight: 192 lb Body Mass Index (BMI) 24.0 Intake and Output for Last 24 Hours 04/17/19 04/18/19 04/19/19 23:59 23:59 23:59 Intake Total 1000 / 1000 Balance 1000 / 1000 Laboratory Tests Past 24 Hrs 04/19/19 04/19/19 15:20 15:20 WBC 7.0 RBC 4.94 Hgb 15.6 Hct 42.5 MCV 86.0 MCH 31.6 MCHC 36.7 H RDW Std Deviation 37.2 RDW Coeff of Jaret 11.9 Plt Count 246 MPV 9.6 Immature Gran % (Auto) 0.400 Neut % (Auto) 83.2 H Lymph % (Auto) 8.3 L [place] % (Auto) 7.5 Eos % (Auto) 0.3 Baso % (Auto) 0.3 Absolute Neuts (auto) 5.8 Absolute Lymphs (auto) 0.58 L Nucleated RBC % 0 Differential Comment SCANNED Sodium 141 Potassium 3.3 L Chloride 107 Carbon Dioxide 21.0 Anion Gap 13 BUN 12 Creatinine 0.88 Estim Creat Clear Calc 105.36 Est GFR (MDRD) Af Amer 113 Est GFR (MDRD) Non-Af 93 BUN/Creatinine Ratio 13.6 Glucose 105 Calcium 8.5 Total Bilirubin 1.70 H AST 29 ALT 55 Alkaline Phosphatase 74 Total Protein 7.4 Albumin 4.0 Globulin 3.4 Albumin/Globulin Ratio 1.2 Assessment/Plan Hospitalist note: I am seeing this patient in conjunction with Lesa Broussard. I independently seen and examined the patient. History and physical and laboratory data and I concur with the above admission and treatment plan. Patient presented to the medicine because of right lower quadrant abdominal pain, sudden onset, dull aching pain, goes on his right flank, associated with nausea and vomiting as well as minimal diarrhea and without aggravating or relieving factors. He did for acute colitis 5 days ago, was treated and was discharged home on antibiotics. He came back to the emergency room on the April 17, was readmitted for intractable nausea and vomiting as well as recurrent abdominal pain. He had a CAT abdomen and pelvis on April 17 that revealed less thickening of the distal descending and proximal transverse colon. He stayed in the hospital for 1 day and he was discharged next day because he improved, had no more abdominal pain and no more nausea vomiting. Today, he came back to the hospital because of recurrent sudden abdominal pain with intractable nausea and vomiting and he is being admitted for observation. In the emergency department, his vital signs are stable, afebrile. Routine blood work was remarkable for potassium of 3.3, otherwise normal. LFT was unremarkable except for bilirubin of 1.7. - Physical Exam General: Alert, Oriented x3, Cooperative, No apparent distress. HEENT: Atraumatic, PERRLA, EOMI. Neck: Supple, No JVD, Negative Carotid Bruits, Trachea Midline, Thyroid Normal. Lungs: Clear to auscultation, Normal air movement, No rhonchi, No wheeze, No rales. Cardiovascular: Regular rate, Regular Rhythm, Normal S1, Normal S2, PMI Normal. Abdomen: Bowel Sounds Present, minimal right lower quadrant tenderness, no guarding or rigidity,, Non-Distended, No Hepato-splenomegaly. Extremities: No clubbing, No cyanosis, No edema Skin: No rashes, No breakdown Neurological: Cranial nerves are intact, neuro grossly intact Vital Signs are stable. #1 recent acute colitis of the distal ascending and proximal transverse colon/intractable nausea and vomiting: Patient was admitted twice in the last week. He had a CAT scan on April 15 and other CAT scan abdomen on April 17, findings reviewed. He is afebrile, no leukocytosis. Left knee is remarkable for bilirubin of 1.7 today. Patient cannot keep any medication down his stomach including antibiotics. Plan: Admit to [facility] for observation, clear liquids, IV fluids, IV antiemetics, IV Flagyl and ciprofloxacin, general surgery consult. #2 hypokalemia: Likely because of diarrhea, plan to replace with IV potassium chloride. This note was generated with [employer]eng[employer] dictation software. It may contain incorrect words, spelling, and punctuation that were not noted in checking the note before signing. Code Visit OBSV E&M: 97045 Initial observation care L3
[2019-04-19] MEDS: 0.9% Normal Saline 1,000 ML 100 ML IV (18:01)
[2019-04-19] MEDS: Morphine 2 MG/ML Syringe 1 MG IV (18:01)
[2019-04-19] MEDS: proMETHazine 25 MG/ML Syringe 6.25 MG IV (18:01)
[2019-04-19] MEDS: Potassium Chloride 10mEq/100mL 10 MEQ/100 ML IV.SOLN. 100 MEQ IV BOLUS ×2 (18:55→20:15)
--- NOTE | 2019-04-19 20:48 | NURSING ---
Patient requesting a consult to [facility]. Dr. Polo notified she is putting in the consult. Dr. Billings was called and her consult was cancelled by this nurse. Patient and is aware of [facility] will see pt.
[2019-04-19] MEDS: metroNIDAZOLE 500 MG/100 ML BAG 100 MG IV (21:33)
[2019-04-19] MEDS: hydrALAZINE 20 MG/ML Vial 10 MG IV (21:41)
[2019-04-19] MEDS: 0.9% NaCl Peripheral Flush Adult/Peds IV (21:42)
[2019-04-19] MEDS: Ciprofloxacin 400 MG/200 ML BAG 200 MG IV (23:06)
--- NOTE | 2019-04-20 01:30 | NURSING ---
04/19/191999 at bedside requesting pain medication for patient. Explained it was to early will text for new orders. When asking pt about pain he said it is more in the middle of the abdomen heartburn indigestion states minimal pain to RLQ at this time.
--- NOTE | 2019-04-20 01:35 | NURSING ---
04/19/19 Patient resting with eyes closed. remains at bedside. Medicated for nausea at this time. reports patient has dry heaves but nothing comes up.
[2019-04-20 05:15] VITALS: BP 129/82; PULSE 68; RESP 18; TEMP 36.7; O2SAT 97
[2019-04-20] MEDS: metroNIDAZOLE 500 MG/100 ML BAG 100 MG IV (06:07)
--- NOTE | 2019-04-20 08:29 | CON.PCM_ITS ---
Reason for Consult Date of Consultation: 04/20/19 History of Present Illness: The patient is a 63 year old M sleep presented to the ER on 04/15/2019 due to right flank/groin pain. Patient states the pain was 8-9/10 that day. About the week prior to that he did have some mild right lower back pain which is a 4/10. Patient CT abdomen pelvis that was done that called colitis of the distal ascending and transverse colon, white blood count was within normal limits. Patient was given Cipro Flagyl and sent home. Patient did return on 04/17/2019 to the ER due to right flank and groin pain. And was admitted overnight and treated with IV antibiotics. Patient felt well in the morning and again was sent home. Patient did return to the ER last night with right groin/back pain. Patient also had heartburn reflux with nausea and vomiting. On further questioning patient does admit that this pain can also radiate down his leg to about his mid thigh. Patient did state he started to have diarrhea last Monday but that was only after he started drinking prune juice as he thought it would make him feel better. Patient denies any diarrhea prior to this. Patient has never had a colonoscopy. Patient denies any history of right upper quadrant or left upper quadrant or epigastric abdominal pain other than the reflux prior to coming in which was burning up his esophagus. This morning patient states he feels great no pain states he can get up and run. Past Medical History Allergies No Known Allergies Allergy (Verified 04/19/19 14:55) Home Medications: Ambulatory Orders Medication Instructions Recorded Gabapentin [Neurontin] 300 mg PO TIDCM #90 cap 04/20/19 Pantoprazole Sodium [Protonix] 40 mg PO DAILY #30 tab 04/20/19 Potassium Chloride [K-Dur] 20 meq PO BIDCM #6 tab 04/20/19 Prednisone 60 mg PO DAILY #30 tab 04/20/19 Surgical History: herniorrhaphy Psychiatric History: No pertinent psych hx Lives: Spouse/ Significant Other Smoking Status: Never smoker Alcohol: None Drugs: None - *Family History Maternal History Items: - - Denies known maternal medical history including cardiac history. Paternal History Items: - - Denies known paternal medical history including cardiac history. Review of Systems Constitutional: Denies: Anorexia HEENT: Denies: Difficulty Swallowing Cardiovascular: Denies: Chest Pain Gastrointestinal: Denies: Abdominal Pain Genitourinary: Denies: Dysuria Musculoskeletal: Reports: Back Pain - previous, Leg Pain - previous Skin: Denies: Rash Neurological: Denies: Balance problems Psychiatric: Denies: Anxiety, Depression Hematologic/ Lymphatic: Denies: Easy Bruising - Physical Exam General: Alert, Oriented x3, Cooperative, No apparent distress HEENT: Atraumatic Lungs: Normal air movement Cardiovascular: Regular rate Abdomen: Soft, Non Tender, Non-Distended Extremities: No clubbing, No cyanosis, No edema Neurological: Cranial nerves II-XII grossly intact Psych/Mental Status: Normal Affect Vital Signs Temp Pulse Resp BP Pulse Ox 98.1 F 68 18 129/82 H 97 04/20/19 05:15 04/20/19 05:15 04/20/19 05:15 04/20/19 05:15 04/20/19 05:15 Oxygen Delivery Method Room Air Weight: 192 lb Body Mass Index (BMI) 24.0 Intake and Output for Last 24 Hours 04/18/19 04/19/19 04/20/19 23:59 23:59 23:59 Intake Total 2310 / 3310 2911 / 2911 Output Total 2 / 2 Balance 2310 / 3308 2909 / 2909 Laboratory Tests Past 24 Hrs 04/19/19 04/19/19 15:20 15:20 WBC 7.0 RBC 4.94 Hgb 15.6 Hct 42.5 MCV 86.0 MCH 31.6 MCHC 36.7 H RDW Std Deviation 37.2 RDW Coeff of Jaret 11.9 Plt Count 246 MPV 9.6 Immature Gran % (Auto) 0.400 Neut % (Auto) 83.2 H Lymph % (Auto) 8.3 L [place] % (Auto) 7.5 Eos % (Auto) 0.3 Baso % (Auto) 0.3 Absolute Neuts (auto) 5.8 Absolute Lymphs (auto) 0.58 L Nucleated RBC % 0 Differential Comment SCANNED Sodium 141 Potassium 3.3 L Chloride 107 Carbon Dioxide 21.0 Anion Gap 13 BUN 12 Creatinine 0.88 Estim Creat Clear Calc 105.36 Est GFR (MDRD) Af Amer 113 Est GFR (MDRD) Non-Af 93 BUN/Creatinine Ratio 13.6 Glucose 105 Calcium 8.5 Total Bilirubin 1.70 H AST 29 ALT 55 Alkaline Phosphatase 74 Total Protein 7.4 Albumin 4.0 Globulin 3.4 Albumin/Globulin Ratio 1.2 Assessment/Plan All Active Problems Intractable vomiting with nausea (Acute) Acute colitis (Acute) Failure of outpatient treatment (Acute) 63-year-old male with right flank, right groin pain radiating down the leg, GERD 1. Patient CT abdomen pelvis showed a decompressed ascending and descending colon which was called thickened. Patient has never had any left upper quadrant or right upper quadrant or epigastric abdominal pain--except for the recent episode of reflux prior to coming in this time. His pain started in his right low back and did radiate around towards his groin and then occasionally down his leg. Patient did have some diarrhea however he only had diarrhea after he drank prune juice prior to that he had no diarrhea. Patient denied any nausea or vomiting until last night when he had some reflux symptoms and heartburn. We will plan to stop antibiotics, did discuss with Dr. Pierce and she will workup/treat the radicular pain. We will have patient follow-up as an outpatient for a screening colonoscopy. Patient did state that he does not really like to go to the doctor, did discuss to him the importance of the screening colonoscopy and encouraged him to get it done as this could prevent him from having to see doctors more often than he would want to in the future. Also recommend patient take a short course of Protonix for the heartburn, patient's stomach may have also been irritated due to the antibiotics. Aggie Lan M.D. Pager: [phone] [facility] [address] [place] [address], Outpatient [place], [address] [place] [address] Office: [phone] Code Visit Inpatient E&M: 32788 Init Hosp L2
[2019-04-20 08:58] LABS: Absolute Lymphocyte Count 0.94 X10^3/uL (0.83-4.51); Absolute Neutrophil Count 6.1 X10^3/uL (2.0-7.7); Basophil# 0.03 X10^3/uL; Basophil% 0.4 % (0-1); Eosinophil# 0.09 X10^3/uL; Eosinophils% 1.1 % (0-5); Hematocrit 37.9 % (40-54); Hemoglobin 13.8 g/dL (13.0-16.5); Lymphocyte # 0.94 X10^3/ul (4.0); Lymphocyte % 11.6 % (19-41); Mean Corp Hgb Conc 36.4 g/dL (32-36); Mean Corpuscular Hgb 31.8 pg (27.0-32.0); Mean Corpuscular Volume 87.3 fL (80-94); Mean Platelet Vol. 9.6 fl (6.2-12.0); Monocyte# 0.86 X10^3/uL; Monocyte% 10.7 % (0-10); NRBC Flagged by Analyzer 0 % (0-5); Neutrophil % 75.6 % (47-70); Platelet Count 216 K/mm3 (150-450); RBC Distribution Width CV 12.1 % (11.6-14.6); RBC Distribution Width SD 38.5 fl (35.1-43.9); Red Blood Count 4.34 M/mm3 (4.6-6.2); White Blood Count 8.1 K/mm3 (4.4-11.0)
--- NOTE | 2019-04-20 09:13 | NURSING ---
PT QUESTIONING NEED FOR NEURONTIN-PRINTED PT INFO SHEET AND HE WILL WAIT UNTIL HE SPEAKS W/HOSPITALIST REGUARDING NEED FOR THIS MED, ALSO GAVE INFO SHEET ON RADICULOPATHY, WHICH IS IN [facility] NOTE
[2019-04-20 09:17] VITALS: BP 122/73; PULSE 69; RESP 18; TEMP 37.9; O2SAT 98
[2019-04-20 09:19] LABS: Erythrocyte Sedimentation Rate 2 mm/hr (0-20)
[2019-04-20 09:31] LABS: Anion Gap 10 (5-15); BUN 9 mg/dL (7-18); BUN/Creat Ratio 10.8 RATIO (10-20); Chloride 109 mmol/L (98-107); Creatinine, Serum 0.83 mg/dL (0.70-1.30); EST Glomerular Filtration Rate 100 mL/min (>60); Est Glom Filt Rate - Afr Amer 121 mL/min (>60); Estimated Creatinine Clearance 111.71 ml/min; Glucose 87 mg/dL (74-106); Sodium Level 141 mmol/L (136-145)
--- NOTE | 2019-04-20 11:00 | MRI_ITS ---
STUDY: MRI LUMBAR SPINE WITHOUT CONTRAST REASON FOR EXAM: Male, 63 years old. Intractable back pain and right leg pain. Fall 4 weeks ago but back pain only in the past 2 weeks. TECHNIQUE: Standardized fat and water weighted pulse sequences were obtained in the sagittal and axial planes. COMPARISON: CT abdomen and pelvis without contrast 04/17/2019. FINDINGS: T11-T12: (Sagittal only). Normal endplates. Normal disc height, hydration and morphology. No ventral extradural defect. Normal central canal and bilateral intervertebral neural foramina. T12-L1: (Sagittal only). Normal endplates. Minimal anterior marginal spurs. Mild disc space height narrowing. Small posterior bulging disc. Normal central canal and bilateral intervertebral neural foramina. Normal lumbar lordosis. There is no substantial scoliosis. Normal conus medullaris that terminates at the T12-L1 disc level. L1-2: Small anterior marginal spurs. Normal endplates. Moderate disc space height narrowing with minimal degenerative vacuum phenomenon. Small posterior marginal spurs. Normal central canal and bilateral lateral recesses. Mild degenerative facet arthropathy. Normal bilateral intervertebral neural foramina. L2-3: Anterior marginal spurs. Normal endplates. Moderate disc space height narrowing. Normal central canal and bilateral lateral recesses. Mild degenerative facet arthropathy. Normal bilateral intervertebral neural foramina. L3-4: Anterior marginal spurs. Schmorl's node in the anterior superior L4 endplate. Mild Modic type II degenerative fatty changes underneath the right side of the vertebral endplates. Pronounced disc space height narrowing. Normal central canal and bilateral lateral recesses. Mild asymmetric degenerative facet arthropathy. Mild stenosis of the right intervertebral foramen. Normal left intervertebral neural foramen. L4-5: Pronounced disc space height narrowing. Minimal degenerative retrolisthesis of L4 on L5. Normal central canal. Mild stenosis of the right intervertebral neural foramen. Normal left intervertebral neural foramen. L5-S1: Pronounced disc space height narrowing. Mild anterolisthesis of L5 on S1. Bilateral L5 pars defects. Round degenerative vacuum phenomenon in the left lateral recess (series 2, image 7; series 5 and 6, images 4-5) is confirmed on CT. Normal central canal. Normal bilateral lateral recesses. Mild bilateral degenerative facet arthropathy. Mild stenosis of the left intervertebral neural foramen. Moderate stenosis of the right intervertebral neural foramen. Normal visualized sacral ala. Normal visualized paraspinous soft tissue structures. MRI/Spine Lumbar (Routine) IMPRESSION: 1. Bilateral L5 pars defects with mild anterolisthesis of L5 on S1, moderate stenosis of the right intervertebral neural foramen and round degenerative vacuum phenomenon in in the left lateral recesses. This is suggestive of posterior annular tear. No visible extruded disc fragment. 2. Mild degenerative retrolisthesis of L4 on L5 with pronounced disc space height narrowing and mild stenosis of the right intervertebral neural foramen. 3. Pronounced L3-L4 disc space height narrowing and mild stenosis of the right intervertebral neural foramen. 4. Moderate L2-L3 disc space height narrowing and mild bilateral degenerative facet arthropathy. 5. Moderate L1-L2 disc space height narrowing and small posterior marginal spurs and mild bilateral degenerative facet arthropathy. 6. Small T12-L1 posterior bulging disc. Electronically Signed: Maninder Diaz MD at 15:40 EDT , Service support ,
--- NOTE | 2019-04-20 11:00 | RAD_ITS ---
STUDY: X-RAY - PELVIS AND RIGHT HIP REASON FOR EXAM: Male, 63 years old. Hip pain TECHNIQUE: 3 views of the pelvis and hip. COMPARISON: None. FINDINGS: There is a non-specific bowel gas pattern. Normal visualized soft tissue structures. Normal bilateral iliac wings, sacroiliac joints and visualized sacrum. Normal bilateral superior and inferior pubic rami. Normal pubic symphysis. Normal bilateral ischial tuberosities. There are osteoarthritic changes of the femoral head with marginal osteophyte formation. There is osteoarthritic spur formation of the acetabular rim. There is mild articular joint space narrowing of the hip. RAD/HIP, UNI W/ Pelvis 2-3 Views IMPRESSION: Mild degenerative changes without acute finding Electronically Signed: Charles Gibson DO at 20:10 EDT Tel , Service support ,
--- NOTE | 2019-04-20 11:21 | NURSING ---
PT TO X RAY VIA W/[facility]
[2019-04-20 11:22] LABS: CRP < 2.90 mg/L (0.0-3.0)
--- NOTE | 2019-04-20 11:53 | NURSING ---
PT IS OFF UNIT FOR TESTING, MRI QUESTIONAIRE RECEIVED AFTER PT LEFT FOR X RAY
[2019-04-20] MEDS: Potassium Chloride 10mEq/100mL 10 MEQ/100 ML IV.SOLN. 100 MEQ IV BOLUS ×4 (12:17→17:02)
[2019-04-20] MEDS: Enoxaparin 40 MG/0.4 ML Syringe SC (12:19)
[2019-04-20] MEDS: Gabapentin 300 MG Capsule PO ×2 (12:21→18:08)
--- NOTE | 2019-04-20 13:52 | DCINST_ITS ---
- Discharge Diagnoses Current Active Problems: Current Active and Chronic Problems Radicular pain Colitis, resolved You will use the following diet at home:: No restrictions Discharge Activity: Return to Normal Activity Call your doctor if you observe: Shortness of breath, Dizziness, Fainting spells, Chest pain Additional Instructions: Potassium supplementation prescription given X3 days. Allergies/Adverse Reactions: Allergies No Known Allergies Allergy (Verified 04/19/19 14:55) Medications to take at Discharge Gabapentin [Neurontin] 300 mg PO TIDCM #90 cap 04/20/19 Pantoprazole Sodium [Protonix] 40 mg PO DAILY #30 tab 04/20/19 Potassium Chloride [K-Dur] 20 meq PO BIDCM #6 tab 04/20/19 Prednisone 60 mg PO DAILY #30 tab 04/20/19 The following prescriptions were given: Potassium Chloride [K-Dur] 20 meq PO BIDCM #6 tab Transmission Status: Received by [id number] Gabapentin [Neurontin] 300 mg PO TIDCM #90 cap Transmission Status: Received by [id number] Prednisone 60 mg PO DAILY #30 tab Transmission Status: Received by [id number] Pantoprazole Sodium [Protonix] 40 mg PO DAILY #30 tab Transmission Status: Received by [id number] Orders to be completed after discharge: Physical Therapy Evaluation Location: None Selected Primary Care Physician: Chino Faulkner MD [Primary Care Provider] - Please follow up with your Primary Care Physician in: 1 Week Test Results: Test results from this visit will be discussed in further detail at your follow- up appointment, if applicable. Please Follow Up With: Aggie Lan MD When: Call to schedule colonoscopy Proposed Discharge Date: 04/20/19
--- NOTE | 2019-04-20 13:57 | DS.PCM_ITS ---
Discharge Date and Diagnosis Date of Admission: 04/19/19 Date of Discharge: 04/20/19 - Primary Discharge Diagnosis Active and Suspected Problems 1. Acute radicular pain 2. Recent colitis of the distal ascending and proximal transverse colon- resolved. 3. Mild hypokalemia-replaced per protocol. Hospital Course and Treatment Imaging Results: Diagnostic Data Lumbar Spine MRI 04/20/19 11:00 IMPRESSION: 1. Bilateral L5 pars defects with mild anterolisthesis of L5 on S1, moderate stenosis of the right intervertebral neural foramen and round degenerative vacuum phenomenon in in the left lateral recesses. This is suggestive of posterior annular tear. No visible extruded disc fragment. 2. Mild degenerative retrolisthesis of L4 on L5 with pronounced disc space height narrowing and mild stenosis of the right intervertebral neural foramen. 3. Pronounced L3-L4 disc space height narrowing and mild stenosis of the right intervertebral neural foramen. 4. Moderate L2-L3 disc space height narrowing and mild bilateral degenerative facet arthropathy. 5. Moderate L1-L2 disc space height narrowing and small posterior marginal spurs and mild bilateral degenerative facet arthropathy. 6. Small T12-L1 posterior bulging disc. Electronically Signed: Maninder Diaz MD at 15:40 EDT , Service support , Dr. Lan- General Surgery Operations: None Procedures: None Summary of Care Provided: The patient is a 63 year old M admitted 04/19/2019 due to right sided abdominal pain, N/V. 1. Acute radicular pain- patient complains of right flank pain with radiation to right groin and thigh. MRI of lumbar spine shows possible posterior annular tear, moderate L2-L3 disc space narrowing and mild bilateral facet arthropathy, small T12-L1 posterior bulging disc, moderate L1-L2 disc space height narrowing and small posterior marginal spurs and mild bilateral degenerative facet arthropathy. Initiated on gapapentin 300 mg TID. Outpatient PT ordered. Prednisone 60 mg x 10 days. Advised on no bending, twisting or lifting greater than 10 pounds. Follow up with PCP in 3-5 days. Pending PT evaluation and patient symptoms, may require referral to pain management for further evaluation as well. 2. Recent colitis of the distal ascending and proximal transverse colon- resolved. Dr. Robotham consulted. Further antibiotics discontinued. Outpatient follow-up for routine colonoscopy. Initiated on Protonix 40 mg daily for reflux. 3. Mild hypokalemia-replace per protocol. Given recent GI loss, continue potassium supplement X3 days and then discontinue. General: Alert, Oriented x3, Cooperative, - - Appears uncomfortable, nauseated HEENT: Atraumatic, PERRLA, EOMI, Normocephalic Oral: Moist Mucosa Neck: Supple, No JVD, Negative Carotid Bruits Lungs: Clear to auscultation, Normal air movement Cardiovascular: Regular rate, Regular Rhythm, Normal S1, Normal S2, No murmurs Abdomen: Bowel Sounds Present, Soft, Non-Distended, Non-Tender Extremities: No clubbing, No cyanosis, No edema, Capillary Refill Less than 3 Seconds Skin: No rashes, No breakdown Musculoskeletal: No Tenderness to Palpation of Joints or Extremities Neurological: Cranial nerves II-XII grossly intact, Neuro grossly intact Psych/Mental Status: Normal Affect, Appropriate Patient seen and examined prior to discharge. Physical assessment as noted above. Patient is stable for discharge with follow up recommendations as noted above. This patient was seen by [facility] under the supervision of Dr. Pierce. - Physical Exam Vital Signs Temp Pulse Resp BP Pulse Ox 100.3 F H 69 18 122/73 H 98 04/20/19 09:17 04/20/19 09:17 04/20/19 09:17 04/20/19 09:17 04/20/19 09:17 Oxygen Delivery Method Room Air Weight: 192 lb Body Mass Index (BMI) 24.0 Intake and Output for Last 24 Hours 04/18/19 04/19/19 04/20/19 23:59 23:59 23:59 Intake Total 2310 / 3310 3111 / 3111 Output Total 2 / 2 Balance 2310 / 3308 3109 / 3109 Laboratory Tests Past 24 Hrs 04/19/19 04/19/19 04/20/19 15:20 15:20 08:38 WBC 7.0 8.1 RBC 4.94 4.34 L Hgb 15.6 13.8 Hct 42.5 37.9 L MCV 86.0 87.3 MCH 31.6 31.8 MCHC 36.7 H 36.4 H RDW Std Deviation 37.2 38.5 RDW Coeff of Jaret 11.9 12.1 Plt Count 246 216 MPV 9.6 9.6 Immature Gran % (Auto) 0.400 0.600 Neut % (Auto) 83.2 H 75.6 H Lymph % (Auto) 8.3 L 11.6 L [place] % (Auto) 7.5 10.7 H Eos % (Auto) 0.3 1.1 Baso % (Auto) 0.3 0.4 Absolute Neuts (auto) 5.8 6.1 Absolute Lymphs (auto) 0.58 L 0.94 Nucleated RBC % 0 0 Differential Comment SCANNED ESR Sodium 141 Potassium 3.3 L Chloride 107 Carbon Dioxide 21.0 Anion Gap 13 BUN 12 Creatinine 0.88 Estim Creat Clear Calc 105.36 Est GFR (MDRD) Af Amer 113 Est GFR (MDRD) Non-Af 93 BUN/Creatinine Ratio 13.6 Glucose 105 Calcium 8.5 Total Bilirubin 1.70 H AST 29 ALT 55 Alkaline Phosphatase 74 C-React Prot Ext Range Total Protein 7.4 Albumin 4.0 Globulin 3.4 Albumin/Globulin Ratio 1.2 04/20/19 04/20/19 04/20/19 08:38 08:38 08:38 WBC RBC Hgb Hct MCV MCH MCHC RDW Std Deviation RDW Coeff of Jaret Plt Count MPV Immature Gran % (Auto) Neut % (Auto) Lymph % (Auto) [place] % (Auto) Eos % (Auto) Baso % (Auto) Absolute Neuts (auto) Absolute Lymphs (auto) Nucleated RBC % Differential Comment ESR 2 Sodium 141 Potassium 3.0 L Chloride 109 H Carbon Dioxide 22.0 Anion Gap 10 BUN 9 Creatinine 0.83 Estim Creat Clear Calc 111.71 Est GFR (MDRD) Af Amer 121 Est GFR (MDRD) Non-Af 100 BUN/Creatinine Ratio 10.8 Glucose 87 Calcium 8.0 L Total Bilirubin AST ALT Alkaline Phosphatase C-React Prot Ext Range < 2.90 Total Protein Albumin Globulin Albumin/Globulin Ratio Discharge Diet: No Restrictions Discharge Activity: Return to Normal Activity Call your doctor if you observe: Shortness of breath, Dizziness, Fainting spells, Chest pain Home Medications: Medications to take at Discharge Gabapentin [Neurontin] 300 mg PO TIDCM #90 cap 04/20/19 Pantoprazole Sodium [Protonix] 40 mg PO DAILY #30 tab 04/20/19 Potassium Chloride [K-Dur] 20 meq PO BIDCM #6 tab 04/20/19 Prednisone 60 mg PO DAILY #30 tab 04/20/19 Following Prescrptions Were Given to Patient: Potassium Chloride [K-Dur] 20 meq PO BIDCM #6 tab [facility] Status[facility] Gabapentin [Neurontin] 300 mg PO TIDCM #90 cap Transmission Status: Received by [facility] Prednisone 60 mg PO DAILY #30 tab Transmission Status: Received by [facility] Pantoprazole Sodium [Protonix] 40 mg PO DAILY #30 tab Transmission Status: Received by [facility] Other Amb Orders: Physical Therapy Evaluation Location: None Selected Primary Care Physician: Chino Faulkner MD [Primary Care Provider] - Please follow up with your Primary Care Physician in: 1 Week Please Follow Up With: Aggie Lan MD When: Call to schedule colonoscopy Disposition: Home Minutes spent on discharge:: 35 Patient Condition:: Stable Medical Necessity - Tobacco Use Smoking Status: Never smoker Meaningful Use Info Meaningful Use Diagnoses (Choose all that apply): None applicable
[2019-04-20 14:41] VITALS: BP 128/63; PULSE 80; RESP 18; TEMP 36.7; O2SAT 100
== END 2019-04-20 18:18 | disposition home or self-care (01) ==
LOC: ED 16:52 → MS3 16:59
PROVIDERS: Surgery; Admitting Provider Hospitalist; Emergency Provider Emergency Medicine; Family Provider Specialist; PCP Family Medicine; Referring Provider Hospitalist; Visit Provider Internal Medicine
DX: M51.37 Other intervertebral disc degeneration, lumbosacral region (principal); K57.30 Diverticulosis of large intestine without perforation or abscess without bleeding; E87.6 Hypokalemia; K21.9 Gastro-esophageal reflux disease without esophagitis; Z79.899 Other long term (current) drug therapy
CPT/HCPCS: 36415; 72148; 73502; 80048; 80053; 85025; 85652; 86140; 96361; 96365; 96366; 96367; 96372; 96375; 96376; 99218; 99284; J7030; J7040; A4216; G0378; J0744; J2405; J3490

== ENCOUNTER 2019-05-08 12:43 | Outpatient (RCR) | payer OTHER, SELFPAY ==
[2019-04-19 17:25] VITALS: BMI 24.0
--- NOTE | 2019-05-08 13:58 | HP.PTEVAL ---
Patient's Visit Information DAMIEN العراقي is a 63 year old M referred to Physical Therapy by Lesa Broussard NP-C with a diagnosis of LBP. Date of Evaluation: 05/08/19 Physical Therapist: Dar Loera, DPT, OCS, CSCS - Visit Plan Plan: Reviewed posutre with towel roll, julianasnfers with patient adn given HEP of pelvic tilt, LE rotation in NWB and fis as HEP throughout the day. pt did not wish to return and thinks he will be good with these changes. Will contact doctor if pain returns. - Subjective Findings: Had abdominal pain a couple weeks ago and to ER 3 x. Couldn't figure out what was wrong. Antibiotics adn muscle relaxers seemed to get rid of it. Had catscana nd MRI and does have bulging disc in LB. 10/10 abdominal pain at the time. Gone now. Just R sided LBP/hip /thigh pain at times worse trying to get off the couch at night. Not taking meds now. Is painful and stiff in the morning getting up. gone with moving around. Sleep is OK, rolling can be trouble and has to find a comfortable spot. Activities are normal at home. 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 - Pain R LBP Pain Intensity (Out of 10): 1 Pain Intensity Range: 0, 5 - Objective Slightly hunched forward posture, avoids extension. Very stiff ext in lumbar spine with max losses adn pain. flexion is stiff and no pain, R SB min limited and painful, L SB OK movement without pain. reflexes 2/3 in patella and achilles. sensation LE WNL to gross light touch. Strength LE 4+/5 without myotomal problems. patient does tend to sadcral sit adn sits straight up form uncomfortable supine poisition with pain, hesitant to lie down flat. Repeated ext makes his pain worse adn NE on motion. Pelvic tilt ex seems to hep him move. i with gait and transfers. - Rehabilitation Potential Physical Therapy Diagnosis: LBP likely degenerative in nature Rehabilitation Potential: Fair - Anticipated Interventions Thank you for the opportunity to evaluate your patient. For Medicare and Medicare HMO plans, please review the plan of care and approve it. It will need to be FAXED BACK to us at [phone] for Medicare purposes. For Medicare only, by signing this I certify the plan of care. Please let me know if there are questions or concerns regarding this plan of care. Physician Signature: Date:
== END 2019-05-08 19:00 | disposition home or self-care (01) ==
LOC: PT 12:43
PROVIDERS: Family Provider Specialist; PCP Family Medicine; Referring Provider Nurse Practitioner Family; Visit Provider Nurse Practitioner Family
DX: M54.9 Dorsalgia, unspecified (principal)
CPT/HCPCS: 97110; 97162